=== PATIENT | male | born 1970 | race African-American/Black ===

== ENCOUNTER 2018-02-21 17:50 | Emergency (ER) | payer MEDICAID ==
[~2018-02-21] VITALS: Ht 182.9 cm; Wt 89.0 kg
[~2018-02-21 17:50] MED LIST: NAPR-1176; TRAM50TA
[2018-02-21 17:51] VITALS: BP 133/75
== END 2018-02-21 18:01 | disposition left against medical advice (07) ==
LOC: ER 17:50
DX: F10.129 Alcohol abuse with intoxication, unspecified (principal); Z53.21 Procedure and treatment not carried out due to patient leaving prior to being seen by health care provider